=== PATIENT | male | born 1980 | race Caucasian/White ===

== ENCOUNTER 2017-03-07 02:15 | Emergency (ER) | payer MEDICAID ==
[~2017-03-07] VITALS: Ht 182.9 cm; Wt 88.1 kg
[2017-03-07 02:45] LABS: HEMOGLOBIN 14.4 g/dL (13.7-18.0)
[2017-03-07] MEDS ORDERED: MORPHINE SULFATE 4 MG/ML, 1ML ONE (02:46)
[2017-03-07] MEDS ORDERED: ONDANSETRON 2MG/ML, 2ML ONE (02:47)
[2017-03-07 02:58] LABS: ASPARTATE AMINO TRANSFERASE 14 U/L (15-37); BLOOD UREA NITROGEN 15 mg/dL (7-18)
[2017-03-07] MEDS ORDERED: MORPHINE SULFATE 4 MG/ML, 1ML IVPush PRN (03:00)
[2017-03-07] MEDS ORDERED: SODIUM CHLORIDE 0.9% 1,000ML IVBOLUS ONE (03:00)
[2017-03-07] MEDS ORDERED: SODIUM CHLORIDE FLUSH 10ML SYR IVF ONE (03:00)
[2017-03-07] MEDS ORDERED: ONDANSETRON 2MG/ML, 2ML IVPush ONE (03:00)
[2017-03-07 04:34] VITALS: BP 133/76
== END 2017-03-07 04:57 | disposition home or self-care (01) ==
LOC: ED 02:36
DX: K80.70 Calculus of gallbladder and bile duct without cholecystitis without obstruction (principal); R11.2 Nausea with vomiting, unspecified
CPT/HCPCS: 36415; 76700; 80053; 81003; 83690; 85025; 96361; 96374; 96375; 99285; J2405; J7030